=== PATIENT | female | born 1960 | race Caucasian/White ===

== ENCOUNTER → 2018-11-01 | Outpatient (CLI) | payer OTHER ==
[~2018-11-01] MED LIST: LEVOTHYROXIN0.125 M1 PO; OMEPRAZOLE20 M2 PO; XANAX 0.25 MG0.25 MG PO
== END ==
LOC: CAT 14:30
DX: Z13.6 Encounter for screening for cardiovascular disorders (principal); E78.00 Pure hypercholesterolemia, unspecified